=== PATIENT | female | born 2000 | race African-American/Black ===

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

== ENCOUNTER 2020-04-02 20:21 | Emergency (ER) | payer MEDICAID, SELFPAY | END 2020-04-02 20:53 | disposition home or self-care (01) | LOC: ERS 20:21 | DX: B35.4 Tinea corporis (principal); I10 Essential (primary) hypertension; D64.9 Anemia, unspecified | CPT/HCPCS: 99282 ==

== ENCOUNTER 2020-07-23 18:39 | Emergency (ER) | payer OTHER | END 2020-07-23 20:32 | disposition left against medical advice (07) | LOC: ERS 18:39 | DX: Z53.21 Procedure and treatment not carried out due to patient leaving prior to being seen by health care provider (principal) ==

== ENCOUNTER 2020-08-02 15:21 | Emergency (ER) | payer OTHER ==
[2020-08-02] MEDS ORDERED: Fluconazole 100 MG TAB PO SCH (16:30)
[2020-08-03 23:33] LABS: Chlamydia by PCR Not Detected (NotDetected); GC by PCR Not Detected (NotDetected)
== END 2020-08-02 16:30 | disposition home or self-care (01) ==
LOC: ERS 15:21
DX: B37.3 Candidiasis of vulva and vagina (principal); I10 Essential (primary) hypertension; D64.9 Anemia, unspecified; Z79.899 Other long term (current) drug therapy
CPT/HCPCS: 87480; 87491; 87510; 87591; 87660; 99283

== ENCOUNTER 2020-12-05 08:44 | Emergency (ER) | payer OTHER ==
--- NOTE | 2020-12-05 09:20 | RAD ---
XR Chest 1 View Portable History: Shortness of breath Comparison: Radiograph 2016 Findings: Patchy peripheral and perihilar airspace opacities. No pneumothorax. No effusion. No acute osseous abnormality. Impression: Commonly reported imaging findings of COVID-19 pneumonia.
[2020-12-05 09:45] LABS: BHCG - Serum Negative (NEGATIVE); Pregs Control Background? CLEAR/WHITE (CLR/WHITE); Pregs Control Bar Appear? YES (CONTROL BAR)
[2020-12-05 09:51] LABS: Hemoglobin 14.5 g/dL (12.0-16.0); Mean Corpuscular HGB CONC 33.7 g/dL (32.0-36.0); Mean Corpuscular Hemoglobin 27.6 pg (25.0-35.0); Mean Platelet Volume 10.7 fL (7.4-10.4); Platelet Count 117 thou/uL (130-400); RBC Distribution Width 12.8 % (11.5-14.5); Red Blood Cell (RBC) Count 5.26 mill/uL (4.00-5.20); White Blood Cell (WBC) Count 4.4 thou/uL (4.8-10.8)
[2020-12-05 09:52] LABS: #Lymphocytes 1.6 thou/uL (1.20-3.40); #Monocytes 0.2 thou/uL (0.11-0.59); #Neutrophils 2.5 thou/uL (1.40-6.50); %Basophils 1.1 % (0.0-1.0); %Eosinophils 0.9 % (0.0-10.0); %Lymphocytes 36.1 % (28.0-48.0); %Monocytes 3.6 % (0.0-4.0); %Neutrophils 58.2 % (31.0-61.0)
[2020-12-05 10:04] LABS: ALT (SGPT) 48 U/L (8-55); AST (SGOT) 39 U/L (5-34); Albumin 3.9 g/dL (3.5-5.0); Alkaline Phosphatase 159 U/L (40-100); Anion Gap 21 mmol/L (10-20); BUN (Urea Nitrogen) 9 mg/dL (7.0-18.7); Bilirubin, Total 0.3 mg/dL (0.2-1.2); Calc. Creatinine Clearance 0 mL/min (70-130); Calcium 8.8 mg/dL (7.8-10.44); Carbon Dioxide 20 mmol/L (22-29); Chloride 100 mmol/L (98-107); Globulin 3.8 g/dL (2.4-3.5); Glucose 447 mg/dL (70-105); Potassium 3.8 mmol/L (3.5-5.1); Protein, Total 7.7 g/dL (6.0-8.3); Sodium 137 mmol/L (136-145)
[2020-12-05 10:09] LABS: Large Platelets SLIGHT; MDiff Complete? YES; Platelet Morphology Comment Appears Decreased; Polychromasia SLIGHT = 2-3 cells (100X) (0-2/hpf)
--- NOTE | 2020-12-05 10:41 | CT ---
CT PULMONARY ANGIOGRAM WITH IV CONTRAST AND 3D POST PROCESSING: HISTORY: Fatigue, cough, body aches, fever, diarrhea. FINDINGS: No filling defects are seen in the pulmonary arterial vasculature to suggest pulmonary embolism. The thoracic aorta is well opacified without aneurysmal dissection. No pleural or pericardial effusions are identified. Multifocal patchy ground-glass opacities are seen in the lung [place] bilaterally. No acute osseous abnormalities are seen. No acute osseous abnormalities are seen. Upper abdominal t omograms demonstrate fatty infiltration of the liver. Prominent mediastinal lymph nodes are seen lior suring up to 9 mm. IMPRESSION: 1. No CT evidence of pulmonary embolism. 2. Findings are suspicious for COVID-19 pneumonia. 3. Fatty liver. POS: AH
[2020-12-05] MEDS ORDERED: Iopamidol-370 76% 500 ML 1 ML ONE (13:58)
[2020-12-07 09:16] LABS: SARS-CoV-2 PCR by NAA DETECTED (NotDetected)
--- NOTE | 2020-12-23 21:51 | EKG ---
Blood Pressure : / mmHG Vent. Rate : 100 BPM Atrial Rate : 100 BPM P-R Int : 156 ms QRS Dur : 088 ms QT Int : 344 ms P-R-T Axes : 036 065 -02 degrees QTc Int : 443 ms Normal sinus rhythm T wave abnormality, consider inferior ischemia Abnormal ECG Confirmed by MARY WILLIAM DO ([id number]), food editor ANALI MEDINA ([id number] on 12/23/2020 9:51:03 PM Referred By: Confirmed By:MARY WILLIAM DO
== END 2020-12-05 11:40 | disposition home or self-care (01) ==
LOC: ERS 08:44
DX: U07.1 COVID-19 (principal); J12.82 Pneumonia due to coronavirus disease 2019; R73.9 Hyperglycemia, unspecified; I10 Essential (primary) hypertension; D64.9 Anemia, unspecified; Z79.899 Other long term (current) drug therapy
CPT/HCPCS: 36416; 71045; 71275; 80053; 84484; 84703; 85025; 85379; 87635; 93005; Q9967; U0003; U0005

== ENCOUNTER 2020-12-09 08:41 | Inpatient (IN) | payer OTHER ==
[2020-12-09 09:26] LABS: Base Excess-Venous 0.1 mmol/L (-2.0 to 3.0); Bicarbonate (HCO3v) 25.3 mmol/L (22.0-28.0); CO2 Tension (PvCO2) 42.2 mmHg (40.0-50.0); Calcium, Ionized 1.11 mmol/L (1.15-1.33); Chloride 99 mmol/L (98-107); Hemoglobin - Calc 16.2 g/dL (12.0-16.0); Potassium 4.6 mmol/L (3.5-5.1); Sodium 135 mmol/L (138-145); T. Carbon Dioxide 26.6 mmol/L (22.0-28.0); vO2 Saturation-calc 83.3 % (60.0-85.0)
[2020-12-09 09:36] LABS: Hemoglobin 15.7 g/dL (12.0-16.0); Mean Corpuscular HGB CONC 34.7 g/dL (32.0-36.0); Mean Corpuscular Hemoglobin 28.2 pg (25.0-35.0); Mean Corpuscular Volume 81.3 fL (78.0-98.0); RBC Distribution Width 12.9 % (11.5-14.5); Red Blood Cell (RBC) Count 5.57 mill/uL (4.00-5.20); White Blood Cell (WBC) Count 4.7 thou/uL (4.8-10.8)
[2020-12-09] MEDS ORDERED: Acetaminophen 500 MG TAB ONE (09:39)
[2020-12-09] MEDS ORDERED: Ondansetron PF 4 MG/2 ML Vial ONE (09:39)
[2020-12-09 10:00] LABS: Lipase 43 U/L (8-78); Magnesium 1.9 mg/dL (1.7-2.2); Phosphorus 2.9 mg/dL (2.3-4.7)
[2020-12-09 10:00] LABS: ALT (SGPT) 47 U/L (8-55); AST (SGOT) 50 U/L (5-34); Albumin 4.2 g/dL (3.5-5.0); Alkaline Phosphatase 188 U/L (40-100); Anion Gap 22 mmol/L (10-20); BUN (Urea Nitrogen) 10 mg/dL (7.0-18.7); Bilirubin, Total 0.4 mg/dL (0.2-1.2); Calc. Creatinine Clearance 0 mL/min (70-130); Calcium 9.3 mg/dL (7.8-10.44); Carbon Dioxide 19 mmol/L (22-29); Chloride 96 mmol/L (98-107); Globulin 5.5 g/dL (2.4-3.5); Glucose 396 mg/dL (70-105); Potassium 4.6 mmol/L (3.5-5.1); Protein, Total 9.7 g/dL (6.0-8.3); Sodium 132 mmol/L (136-145)
[2020-12-09] MEDS ORDERED: HumaLOG 300 UNITS/3 ML VIAL ONE (10:53)
[2020-12-09 11:00] LABS: Lymphocytes 32 % (28-48); MDiff Complete? YES; Monocytes 8 % (0-4); Neutrophil 60 % (31-61); Platelet Count 141 thou/uL (130-400); Platelet Morphology Comment Appears Adequate
[2020-12-09] MEDS ORDERED: Insulin Glargine 10 UNITS in Pre-Filled Syringe 1 EACH SC SCH ×2 (11:15→21:00)
[2020-12-09] MEDS ORDERED: Dextrose 5% in Water 1,000 ML IV PRN (11:20)
[2020-12-09] MEDS ORDERED: Dextrose 50% Abboject 50 ML SYRINGE SLOW IVP PRN (11:20)
[2020-12-09] MEDS ORDERED: HumaLOG 300 UNITS/3 ML VIAL SC PRN ×2 (11:20→14:34)
--- NOTE | 2020-12-09 11:34 | PDOC.HHP ---
Hospitalist HPI - History of Present Illness N/V/D History of Present Illness: Ms. Hope is a 20-year-old female with past medical history of hypertension who presents to the emergency room for nausea vomiting diarrhea. Patient was recently diagnosed with Covid approximately 5 days ago and reports that 10 days ago she developed flulike symptoms. For the past few days however she has had worsening nausea vomiting and diarrhea and is now only able to tolerate small amounts of juice. Patient recently visited the emergency room a few days ago where she did have a CT PE performed which was negative for pulmonary embolism. At that time she was having some chest discomfort on deep inspiration. She also presents because she was concerned about her blood sugar. On her recent ER visit she had an elevated blood sugar in the 400s, and when she used her uncles glucometer to check it yesterday evening it was in the 300s. Patient reports a significant family history of diabetes stating that her mother passed at age 36 of diabetes, and that her uncle and grandmother both have type 2 diabetes. In emergency room initial vital signs 164/91, 106, 22, 98.8, 99% on room air. EKG showed sinus arrhythmia with nonspecific changes. Troponin 0 0.010. BUN/CR 10/0.85, sodium 132, potassium 4.6. Anion gap 22, bicarb 19. pH 7.39. H/H 15.7/43.3, WBC 4.7. Beta hydroxybutyrate +1.06, magnesium 1.9, phosphorus 2.9. Patient received 10 units of Lantus in the emergency room along with 1 L of normal saline, zofran, tylenol. Hospitalist ROS - Review of Systems Constitutional: reports: weakness, malaise. denies: fever, chills, sweats Eyes: denies: pain, vision change, conjunctivae inflammation, eyelid inflammat ion, redness, other ENT: denies: ear pain, ear discharge, nose pain, nose discharge, nose congestion, mouth pain, mouth swelling, throat pain, throat swelling, other Respiratory: denies: cough, dry, shortness of breath, hemoptysis, SOB with excertion, pleuritic pain, sputum, wheezing, other Cardiovascular: denies: chest pain, palpitations, orthopnea, paroxysmal noc. dyspnea, edema, light headedness, other Gastrointestinal: reports: nausea, vomiting, abdominal pain, diarrhea. denies: constipation, melena, hematochezia, other Genitourinary: denies: dysuria, frequency, incontinence, hematuria, retention, other Musculoskeletal: denies: neck pain, shoulder pain, arm pain, back pain, hand pain, leg pain, foot pain, other Skin: denies: rash, lesions, joana, bruising, other Neurological: denies: weakness, numbness, incoordination, change in speech, confusion, seizures, other - Medication Medications: Medications include Hydrochlorothiazide Hospitalist History - Past Medical History Other Medical History: Past medical history includes Hypertension Thrombocytopenia - Past Surgical History Other Surgical History: Past surgical history includes Cholecystectomy x2 - Family History Other Family History: Family history is significant for diabetes in patient's mother who passed at 36 from complications from diabetes, uncle with diabetes and grandmother with diabetes. No family history of cardiac disease - Social History Smoking Status: Never smoker Alcohol: reports: None Drugs: reports: none Living Situation: With Family Activity level: independent ambulation - Exam General Appearance: NAD, awake alert Eye: PERRL, anicteric sclera ENT: normocephalic atraumatic, no oropharyngeal lesions, moist mucosa Neck: supple, symmetric, no JVD, no thyromegaly, no lymphadenopathy, no carotid bruit Heart: RRR, no murmur, no gallops, no rubs, normal peripheral pulses Respiratory: CTAB, no wheezes, no rales, no ronchi, normal chest expansion, no tachypnea, normal percussion Gastrointestinal: soft, non-tender, non-distended, normal bowel sounds, no palpable masses, no hepatomegaly, no splenomegaly, no bruit Extremities: no cyanosis, no clubbing, no edema Skin: normal turgor, no lesions, no rashes Neurological: cranial nerve grossly intact, normal sensation to touch, no weakness, no focal deficits, no new deficit Musculoskeletal: normal tone, normal strength, no muscle wasting Psychiatric: normal affect, normal behavior, A&O x 3 Hospitalist Results - Labs Result Diagrams: 12/09/20 09:07 12/09/20 12:04 Lab results: WBC 4.7 thou/uL (4.8-10.8) L 12/09/20 09:07 Hgb 15.7 g/dL (12.0-16.0) 12/09/20 09:07 Hct 45.3 % (36.0-47.0) 12/09/20 09:07 MCV 81.3 fL (78.0-98.0) 12/09/20 09:07 Plt Count 141 thou/uL (130-400) 12/09/20 09:07 VBG pCO2 42.2 mmHg (40.0-50.0) 12/09/20 09:22 VBG pO2 48.7 mmHg (35.0-45.0) H 12/09/20 09:22 Sodium 132 mmol/L (136-145) L 12/09/20 09:07 Potassium 4.6 mmol/L (3.5-5.1) 12/09/20 09:07 Chloride 96 mmol/L (98-107) L 12/09/20 09:07 Carbon Dioxide 19 mmol/L (22-29) L 12/09/20 09:07 BUN 10 mg/dL (7.0-18.7) 12/09/20 09:07 Creatinine 0.85 mg/dL (0.6-1.1) 12/09/20 09:07 Glucose 396 mg/dL (70-105) H 12/09/20 09:07 Calcium 9.3 mg/dL (7.8-10.44) 12/09/20 09:07 Total Bilirubin 0.4 mg/dL (0.2-1.2) 12/09/20 09:07 AST 50 U/L (5-34) H 12/09/20 09:07 ALT 47 U/L (8-55) 12/09/20 09:07 Alkaline Phosphatase 188 U/L (40-100) H 12/09/20 09:07 Troponin I Less than 0.010 ng/mL (< 0.028) 12/09/20 09:08 Serum Total Protein 9.7 g/dL (6.0-8.3) H 12/09/20 09:07 Albumin 4.2 g/dL (3.5-5.0) 12/09/20 09:07 Lipase 43 U/L (8-78) 12/09/20 09:06 Hospitalist H&P A/P - Plan Plan: 20-year-old female past medical history of hypertension presents with nausea vomiting diarrhea diagnosed with Covid 5 days ago found to have new onset diabe ria and mild DKA. Diabetic ketoacidosis 20-year-old female with past medical history of hypertension presents for nausea vomiting diarrhea secondary to COVID-19 infection found to have new onset diabetes and mild DKA. Patient has a significant family history of diabetes adele loyd in her mother who passed at age 36 reportedly "from diabetes", unknown if type 1 or 2. Blood glucose on admission 396. Anion gap 22, bicarbonate 18, potassium 4.6. VBG showed pH of 7.38. Patient without altered mental status. Beta hydroxybutyrate positive 1.06. Patient received 10 units of Lantus in the emergency room as well as 1 L of normal saline. Patient also has nausea vomiting and abdominal pain c/w DKA. Will place on insulin sliding scale with every 2 hour glucose checks and continue to treat with scheduled insulin. Patient is insulin demairo and has not been on any treatment for diabetes in the past. Likely early-onset type 2 diabetes, but given patient's young age and family history of early diabetes, will check c-peptide and autoantibodies. Plan IV fluids SQ Insulin Every 2 hour glucose checks Close monitoring of potassium, bicarb, other electrolytes Hemoglobin A1c C-peptide, autoantibodies COVID-19 10-year-old female with recurrent COVID-19 infection. Tested +5 days ago, symptoms began 10 days ago. Patient with mild respiratory symptoms including a dry cough, but no shortness of breath. Not currently requiring oxygen. Largest symptom is nausea vomiting and diarrhea. Plan Covid precautions Continue to monitor respiratory status No indication for treatment at this time since patient is not requiring oxygen Nausea vomiting diarrhea Patient presents with 5 days of nausea vomiting diarrhea likely secondary to COVID-19 infection. Patient endorses mild abdominal discomfort, but no locali zed pain. Abdomen soft nontender. Nonperitoneal. Mild DKA may also be playing a role. LFTs AST/ALT 50/47, alk phos 188, T bili 0.97. Lipase 43. Patient symptoms improved with Zofran. Plan Likely due to Covid As needed Zofran Elevation in LFTs Patient with mildly elevated LFTs AST/ALT 50/47, alk phos 188, T bili 0.9. Lipase 43. Patient with nausea vomiting and diarrhea. Mild elevation likely secondary to COVID-19 infection. We will continue to trend. Plan Trend and monitor Hyponatremia Sodium 132 on admission. Likely psuedohyponatremia likely 2/2 hyperglycemia and component of hypoveolemic hyponatremia from GI loses. Patient received 1 L normal saline in emergency room and is receiving IV fluids for her very mild DKA as above. Will trend sodium and continue to monitor. Plan IV fluids Trend sodium DVT prophylaxis- SCDs FULL CODE Case discussed with attending physician, Dr. Castro.
[2020-12-09] MEDS ORDERED: Ondansetron PF 4 MG/2 ML Vial IVP PRN (11:51)
[2020-12-09 11:56] LABS: Hemoglobin A1c Greater than 14.0 % (4.0-6.0)
[2020-12-09 12:35] LABS: Anion Gap 18 mmol/L (10-20); BUN (Urea Nitrogen) 9 mg/dL (7.0-18.7); Calc. Creatinine Clearance 0 mL/min (70-130); Calcium 8.6 mg/dL (7.8-10.44); Carbon Dioxide 18 mmol/L (22-29); Chloride 102 mmol/L (98-107); Glucose 296 mg/dL (70-105); Potassium 4.3 mmol/L (3.5-5.1); Sodium 134 mmol/L (136-145)
[2020-12-09] MEDS: Sodium Chloride 0.9% 1,000 ML IV SCH ×2 (13:20→22:48)
[2020-12-09] MEDS: HumaLOG 300 UNITS/3 ML VIAL SC PRN ×3 (17:26→22:17)
[2020-12-09] MEDS: metFORMIN 500 MG TAB PO SCH (17:26)
[2020-12-09] MEDS: HYDROcodone/Acetaminophen 5/325 mg Tablet PO PRN (20:30)
[2020-12-10 01:16] VITALS: BMI 40.8
[2020-12-10] MEDS: HumaLOG 300 UNITS/3 ML VIAL SC PRN ×5 (04:55→21:35)
[2020-12-10 06:56] LABS: #Basophils 0.1 thou/uL (0.0-0.2); #Eosinphils 0.1 thou/uL (0.0-0.7); #Lymphocytes 1.9 thou/uL (1.20-3.40); #Monocytes 0.2 thou/uL (0.11-0.59); #Neutrophils 1.9 thou/uL (1.40-6.50); %Basophils 1.6 % (0.0-1.0); %Lymphocytes 45.8 % (28.0-48.0); %Monocytes 4.2 % (0.0-4.0); %Neutrophils 46.4 % (31.0-61.0); Hemoglobin 13.6 g/dL (12.0-16.0); Mean Corpuscular HGB CONC 33.1 g/dL (32.0-36.0); Mean Corpuscular Volume 81.5 fL (78.0-98.0); Mean Platelet Volume 10.3 fL (7.4-10.4); Platelet Count 161 thou/uL (130-400); RBC Distribution Width 12.8 % (11.5-14.5); Red Blood Cell (RBC) Count 5.04 mill/uL (4.00-5.20); White Blood Cell (WBC) Count 4.2 thou/uL (4.8-10.8)
[2020-12-10 07:24] LABS: ALT (SGPT) 45 U/L (8-55); AST (SGOT) 35 U/L (5-34); Albumin 3.4 g/dL (3.5-5.0); Alkaline Phosphatase 126 U/L (40-100); Anion Gap 12 mmol/L (10-20); BUN (Urea Nitrogen) 10 mg/dL (7.0-18.7); Bilirubin, Direct 0.1 mg/dL (0.1-0.3); Bilirubin, Total 0.2 mg/dL (0.2-1.2); Calc. Creatinine Clearance 208 mL/min (70-130); Calcium 8.9 mg/dL (7.8-10.44); Carbon Dioxide 24 mmol/L (22-29); Cardiac Risk 5.1 (Less than 4.5); Chloride 103 mmol/L (98-107); Cholesterol 173 mg/dl (< 200 Desired); Glucose 298 mg/dL (70-105); HDL Cholesterol 34 mg/dL (>60 Neg Risk); Protein, Total 6.5 g/dL (6.0-8.3); Sodium 135 mmol/L (136-145); Triglycerides 620 mg/dL (Less than 150)
[2020-12-10] MEDS: metFORMIN 500 MG TAB PO SCH (08:21)
[2020-12-10] MEDS: Insulin Glargine 10 UNITS in Pre-Filled Syringe 1 EACH SC SCH (08:21)
[2020-12-10] MEDS: Sodium Chloride 0.9% 1,000 ML IV SCH ×3 (08:21→16:39)
[2020-12-10] MEDS: HYDROcodone/Acetaminophen 5/325 mg Tablet PO PRN (09:26)
[2020-12-10] MEDS ORDERED: Loperamide HCl 2 MG CAP PO PRN (14:42)
--- NOTE | 2020-12-10 14:45 | PDOC.HOSPP ---
- Subjective Encounter Date: 12/10/20 Encounter Time: 14:40 Subjective: f/u for DKA/new-dx of DM/COVID-19 receiving ISS/IVF's and no O2 requirement. c/o abd pain/diarrhea. Tolerating po intake. - Objective Vital Signs & Weight: Vital Signs (12 hours) Temp Pulse Resp BP Pulse Ox 12/10/20 11:18 97.6 F 71 20 115/76 98 12/10/20 08:25 98 12/10/20 07:45 97.9 F 81 18 116/78 98 12/10/20 04:00 97.5 F L 54 L 18 96/64 98 Weight Weight 223 lb Result Diagrams: 12/10/20 06:40 12/10/20 06:40 Additional Labs: Accuchecks 12/10/20 12/10/20 12/10/20 11:11 06:31 04:46 POC Glucose 241 H 278 H 288 H 12/10/20 12/09/20 12/09/20 00:20 22:10 20:24 POC Glucose 190 H 272 H 329 H 12/09/20 16:45 POC Glucose 311 H Laboratory Tests 12/09/20 12/09/20 12/09/20 09:06 09:08 11:39 Hemoglobin A1c Greater than 14.0 H C-Peptide Magnesium 1.9 Triglycerides Cholesterol HDL Cholesterol Lipase 43 B-Hydroxybutyrate 1.06 H 12/09/20 12/10/20 11:39 06:40 Hemoglobin A1c C-Peptide 2.4 Magnesium Triglycerides 620 H Cholesterol 173 HDL Cholesterol 34 Lipase B-Hydroxybutyrate Hospitalist ROS - Medication Medications: Active Medications Generic Name Dose Route Start Last Admin Trade Name Freq PRN Reason Stop Dose Admin Hydrocodone Bitart/Acetaminophen 2 tab 12/09/20 19:59 12/10/20 09:26 Hydrocodone/Acetaminophen 5/325 Mg Tablet PO 2 tab Q4H PRN Administration Moderate to Severe Pain (6-10) Sodium Chloride 1,000 mls @ 100 mls/hr 12/09/20 11:30 12/10/20 08:21 Normal Saline 0.9% IV 1,000 mls .Q10H XIN Administration Insulin Glargine 10 units/ 0.1 mls @ 0 mls/hr 12/10/20 09:00 01/24/21 08:21 Miscellaneous Medication SC 0.1 mls QAM XIN Administration Insulin Human Lispro 0 units 12/09/20 11:20 12/10/20 04:55 Humalog 300 Units/3 Ml Vial SC 3 unit .BEDTIME SLIDING SC PRN Administration Bedtime Correctional Scale Insulin Human Lispro 0 units 12/09/20 14:34 12/10/20 11:26 Humalog 300 Units/3 Ml Vial SC 4 unit .MODERATE SLIDING SC PRN Administration Moderate Correctional Scale Metformin HCl 500 mg 12/09/20 17:00 12/10/20 08:21 Metformin 500 Mg Tab PO 500 mg BID-WM XIN Administration - Exam General Appearance: NAD, awake alert Eye: PERRL, anicteric sclera ENT: normocephalic atraumatic, no oropharyngeal lesions Neck: supple, symmetric, no JVD, no thyromegaly, no lymphadenopathy Heart: RRR, no murmur, no gallops, no rubs, normal peripheral pulses Heart - other findings: S1, S2 Respiratory: CTAB, no wheezes, no rales, no ronchi, normal chest expansion Gastrointestinal: soft, non-tender, non-distended, normal bowel sounds, no palpable masses Extremities: no cyanosis, no clubbing, no edema Skin: normal turgor, no lesions Neurological: cranial nerve grossly intact, no new deficit Musculoskeletal: normal tone, normal strength, no muscle wasting Psychiatric: normal affect, A&O x 3 Hosp A/P (1) DKA (diabetic ketoacidosis) Code(s): E11.10 - TYPE 2 DIABETES MELLITUS WITH KETOACIDOSIS WITHOUT COMA Status: Acute Qualifiers: Diabetes mellitus type: type 2 Plan: Continue IVF's, increase Lantus 10u BID, ISS, DM teaching, ADA, serial accuchecks (2) COVID-19 Code(s): U07.1 - COVID-19 Status: Acute Plan: Continue supportive mgmt, isolation protocol, add Vit C/Zinc/D3 (3) Abdominal pain Code(s): R10.9 - UNSPECIFIED ABDOMINAL PAIN Status: Acute Qualifiers: Abdominal location: generalized Qualified Code(s): R10.84 - Generalized abdominal pain Plan: Likely combination of COVID-19/DKA, continue supportive mgmt (4) Nausea & vomiting Code(s): R11.2 - NAUSEA WITH VOMITING, UNSPECIFIED Status: Acute Plan: Likely multifactorial, continue Zofran/IVF's (5) New onset type 2 diabetes mellitus Code(s): E11.9 - TYPE 2 DIABETES MELLITUS WITHOUT COMPLICATIONS Status: Acute Plan: A1C = 14, continue Lantus/ISS/hold Metformin due to ongoing abd pain/diarrhea, DM teaching, consider dietitian consult - Plan psychotherapist social worker, out of bed/ambulate, DVT proph w/SCDs Continue supportive mgmt Consult Dietitian for DM education Increase Lantus 10u BID ISS/ADA Start Vit C/Zinc/D3 Hold Metformin due to abd pain/diarrhea AM lab: BMP
[2020-12-10] MEDS ORDERED: Ascorbic Acid 500 mg Chewable Tablet PO SCH (15:15)
[2020-12-10] MEDS ORDERED: Zinc Sulfate 220 MG CAP PO SCH (15:15)
[2020-12-10] MEDS: Ondansetron ODT 4 MG TAB PO PRN (16:48)
[2020-12-10] MEDS ORDERED: Insulin Glargine 10 UNITS in Pre-Filled Syringe 1 EACH SC SCH (21:00)
[2020-12-11] MEDS: HYDROcodone/Acetaminophen 5/325 mg Tablet PO PRN ×3 (03:37→22:02)
[2020-12-11] MEDS: Sodium Chloride 0.9% 1,000 ML IV SCH ×3 (03:38→23:28)
[2020-12-11] MEDS: HumaLOG 300 UNITS/3 ML VIAL SC PRN ×3 (05:39→17:43)
[2020-12-11 07:20] LABS: Hemoglobin 13.2 g/dL (12.0-16.0); Mean Corpuscular HGB CONC 33.2 g/dL (32.0-36.0); Mean Corpuscular Hemoglobin 27.6 pg (25.0-35.0); Mean Corpuscular Volume 83.1 fL (78.0-98.0); Mean Platelet Volume 10.6 fL (7.4-10.4); Platelet Count 157 thou/uL (130-400); RBC Distribution Width 13.1 % (11.5-14.5); Red Blood Cell (RBC) Count 4.78 mill/uL (4.00-5.20); White Blood Cell (WBC) Count 3.8 thou/uL (4.8-10.8)
[2020-12-11 07:30] LABS: ALT (SGPT) 49 U/L (8-55); AST (SGOT) 39 U/L (5-34); Albumin 3.4 g/dL (3.5-5.0); Alkaline Phosphatase 109 U/L (40-100); Anion Gap 13 mmol/L (10-20); BUN (Urea Nitrogen) 8 mg/dL (7.0-18.7); Bilirubin, Total 0.3 mg/dL (0.2-1.2); Calc. Creatinine Clearance 199 mL/min (70-130); Calcium 8.9 mg/dL (7.8-10.44); Carbon Dioxide 27 mmol/L (22-29); Chloride 104 mmol/L (98-107); Globulin 2.8 g/dL (2.4-3.5); Glucose 224 mg/dL (70-105); Potassium 4.1 mmol/L (3.5-5.1); Protein, Total 6.2 g/dL (6.0-8.3); Sodium 140 mmol/L (136-145)
[2020-12-11] MEDS: Cholecalciferol 1,000 UNITS (25 MCG) TAB PO SCH (08:46)
[2020-12-11] MEDS: Insulin Glargine 10 UNITS in Pre-Filled Syringe 1 EACH SC SCH (08:46)
[2020-12-11] MEDS: Zinc Sulfate 220 MG CAP PO SCH (08:46)
[2020-12-11] MEDS: Ascorbic Acid 500 mg Chewable Tablet PO SCH (08:46)
[2020-12-11] MEDS: Ondansetron ODT 4 MG TAB PO PRN ×2 (08:48→22:04)
[2020-12-11 10:25] LABS: Eosinophils 3 % (0-10); Lymphocytes 47 % (28-48); MDiff Complete? YES; Monocytes 7 % (0-4); Neutrophil 43 % (31-61); RBC Morphology Normal
--- NOTE | 2020-12-11 10:28 | PDOC.HOSPP ---
- Subjective Encounter Date: 12/11/20 Encounter Time: 10:25 Subjective: f/u for DKA/COVID/Abd pain/Diarrhea. Overall feeling better today. Glucose trend remains elevated but overall improved. - Objective Vital Signs & Weight: Vital Signs (12 hours) Temp Pulse Resp BP Pulse Ox 12/11/20 07:40 97.8 F 67 18 98/65 98 12/11/20 03:54 98.1 F 69 14 117/88 99 Weight Weight 223 lb I&O: 12/10/20 12/11/20 12/12/20 06:59 06:59 06:59 Intake Total 1245 120 Balance 1245 120 Result Diagrams: 12/11/20 06:25 12/11/20 06:25 Additional Labs: Accuchecks 12/11/20 12/10/20 12/10/20 05:04 20:33 16:24 POC Glucose 188 H 237 H 289 H 12/10/20 11:11 POC Glucose 241 H Laboratory Tests 12/09/20 12/09/20 12/09/20 09:06 09:08 11:39 Hemoglobin A1c Greater than 14.0 H C-Peptide Magnesium 1.9 Triglycerides Cholesterol HDL Cholesterol Lipase 43 B-Hydroxybutyrate 1.06 H 12/09/20 12/10/20 12/11/20 11:39 06:40 06:25 Hemoglobin A1c C-Peptide 2.4 Magnesium Triglycerides 620 H Cholesterol 173 HDL Cholesterol 34 Lipase B-Hydroxybutyrate 0.30 H Hospitalist ROS - Medication Medications: Active Medications Generic Name Dose Route Start Last Admin Trade Name Freq PRN Reason Stop Dose Admin Hydrocodone Bitart/Acetaminophen 1 tab 12/09/20 19:59 12/11/20 03:37 Hydrocodone/Acetaminophen 5/325 Mg Tablet PO 1 tab Q4H PRN Administration Mild-Moderate Pain (1-5) Hydrocodone Bitart/Acetaminophen 2 tab 12/09/20 19:59 12/10/20 09:26 Hydrocodone/Acetaminophen 5/325 Mg Tablet PO 2 tab Q4H PRN Administration Moderate to Severe Pain (6-10) Ascorbic Acid 1,000 mg 12/11/20 09:00 12/11/20 08:46 Ascorbic Acid 500 Mg Chewable Tablet PO 1,000 mg DAILY XIN Administration Cholecalciferol 1,000 units 12/11/20 09:00 12/11/20 08:46 Cholecalciferol 1,000 Units (25 Mcg) Tab PO 1,000 units DAILY XIN Administration Sodium Chloride 1,000 mls @ 100 mls/hr 12/09/20 11:30 12/11/20 03:38 Normal Saline 0.9% IV 1,000 mls .Q10H XIN Administration Insulin Glargine 10 units/ 0.1 mls @ 0 mls/hr 12/10/20 09:00 12/11/20 08:46 Miscellaneous Medication SC 0.1 mls QAM XIN Administration Insulin Glargine 10 units/ 0.1 mls @ 0 mls/hr 12/10/20 21:00 12/10/20 21:35 Miscellaneous Medication SC 0.1 mls HS XIN Administration Insulin Human Lispro 0 units 12/09/20 11:20 12/10/20 21:35 Humalog 300 Units/3 Ml Vial SC 2 unit .BEDTIME SLIDING SC PRN Administration Bedtime Correctional Scale Insulin Human Lispro 0 units 12/09/20 14:34 12/11/20 05:39 Humalog 300 Units/3 Ml Vial SC 2 unit .MODERATE SLIDING SC PRN Administration Moderate Correctional Scale Loperamide HCl 2 mg 12/10/20 14:42 12/10/20 15:23 Loperamide Hcl 2 Mg Cap PO 2 mg PRN PRN Administration Diarrhea/Loose Stools Metformin HCl 500 mg 12/09/20 17:00 12/10/20 08:21 Metformin 500 Mg Tab PO 500 mg BID-WM XIN Administration Ondansetron HCl 4 mg 12/09/20 11:51 12/11/20 08:48 Ondansetron Odt 4 Mg Tab PO 4 mg Q6H PRN Administration Nausea/Vomiting Sodium Chloride 10 ml 12/09/20 20:15 12/11/20 08:47 Flush - Normal Saline 10 Ml Syringe IVF 10 ml PRN PRN Administration Saline Flush Zinc Sulfate 220 mg 12/11/20 09:00 12/11/20 08:46 Zinc Sulfate 220 Mg Cap PO 220 mg DAILY XIN Administration - Exam General Appearance: NAD, awake alert Eye: PERRL, anicteric sclera ENT: normocephalic atraumatic, no oropharyngeal lesions Neck: supple, symmetric, no JVD, no thyromegaly, no lymphadenopathy Heart: RRR, no murmur, no gallops, no rubs, normal peripheral pulses Heart - other findings: S1, S2 Respiratory: CTAB, no wheezes, no rales, no ronchi, normal chest expansion Gastrointestinal: soft, non-tender, non-distended, normal bowel sounds, no palpable masses Extremities: no cyanosis, no clubbing, no edema Skin: normal turgor, no lesions Neurological: cranial nerve grossly intact, no new deficit Musculoskeletal: normal tone, normal strength, no muscle wasting Psychiatric: normal affect, A&O x 3 Hosp A/P (1) DKA (diabetic ketoacidosis) Code(s): E11.10 - TYPE 2 DIABETES MELLITUS WITH KETOACIDOSIS WITHOUT COMA Status: Acute Qualifiers: Diabetes mellitus type: type 2 Plan: Resolving, saline lock IVF's, increase Lantus 15u BID, ISS, DM teaching (2) COVID-19 Code(s): U07.1 - COVID-19 Status: Acute Plan: Continue supportive mgmt, no respiratory compromise (3) Abdominal pain Code(s): R10.9 - UNSPECIFIED ABDOMINAL PAIN Status: Acute Qualifiers: Abdominal location: generalized Qualified Code(s): R10.84 - Generalized abdominal pain Plan: Improved, likely due to COVID-19 and DKA (4) Nausea & vomiting Code(s): R11.2 - NAUSEA WITH VOMITING, UNSPECIFIED Status: Acute Plan: Resolved (5) New onset type 2 diabetes mellitus Code(s): E11.9 - TYPE 2 DIABETES MELLITUS WITHOUT COMPLICATIONS Status: Acute Plan: Continue Lantus 15u BID, ISS, DM teaching, home glucometer, ADA - Plan social work administrator, out of bed/ambulate, DVT proph w/SCDs Continue supportive mgmt Consult Dietitian for DM education Increase Lantus 15u BID ISS/ADA Start Vit C/Zinc/D3 Hold Metformin due to abd pain/diarrhea OOB/ambulate Likely home in am
[2020-12-11] MEDS ORDERED: Insulin Glargine 15 UNITS in Pre-Filled Syringe 1 EACH SC SCH ×2 (10:52→11:00)
[2020-12-11] MEDS ORDERED: Insulin Glargine 5 UNITS in Pre-Filled Syringe 1 EACH SC SCH (12:30)
[2020-12-12] MEDS: HumaLOG 300 UNITS/3 ML VIAL SC PRN (05:56)
[2020-12-12 06:39] LABS: Hemoglobin 13.2 g/dL (12.0-16.0); Lymphocytes 46 % (28-48); MDiff Complete? YES; Mean Corpuscular HGB CONC 34.2 g/dL (32.0-36.0); Mean Corpuscular Hemoglobin 28.2 pg (25.0-35.0); Mean Corpuscular Volume 82.5 fL (78.0-98.0); Mean Platelet Volume 10.3 fL (7.4-10.4); Monocytes 6 % (0-4); Neutrophil 48 % (31-61); Platelet Count 153 thou/uL (130-400); Platelet Morphology Comment Appears Adequate; RBC Distribution Width 13.1 % (11.5-14.5); RBC Morphology Normal; Red Blood Cell (RBC) Count 4.68 mill/uL (4.00-5.20); White Blood Cell (WBC) Count 4.2 thou/uL (4.8-10.8)
[2020-12-12 06:44] LABS: Anion Gap 12 mmol/L (10-20); BUN (Urea Nitrogen) 8 mg/dL (7.0-18.7); Calc. Creatinine Clearance 217 mL/min (70-130); Calcium 8.7 mg/dL (7.8-10.44); Carbon Dioxide 26 mmol/L (22-29); Chloride 104 mmol/L (98-107); Glucose 228 mg/dL (70-105); Sodium 138 mmol/L (136-145)
[2020-12-12] MEDS: Ascorbic Acid 500 mg Chewable Tablet PO SCH (08:41)
[2020-12-12] MEDS: Cholecalciferol 1,000 UNITS (25 MCG) TAB PO SCH (08:41)
[2020-12-12] MEDS: Zinc Sulfate 220 MG CAP PO SCH (08:41)
[2020-12-12] MEDS ORDERED: Insulin Glargine 15 UNITS in Pre-Filled Syringe 1 EACH SC SCH (09:00)
[2020-12-12] MEDS: Sodium Chloride 0.9% 1,000 ML IV SCH (09:26)
[2020-12-12 11:27] VITALS: BP 106/74; TEMP 97.8
--- NOTE | 2020-12-12 11:59 | DIS ---
DATE OF ADMISSION: 12/09/2020 DATE OF DISCHARGE: 12/12/2020 DISCHARGE DIAGNOSES: 1. Diabetic ketoacidosis, mild, resolving. 2. Diabetes mellitus type 2, new onset. 3. COVID-19 viral infection. 4. Abdominal pain secondarily to COVID-19, improved. 5. Nausea and vomiting, resolved. 6. Hyperlipidemia. CONSULTATIONS: None. PERTINENT LABORATORY AND X-RAY FINDINGS: Hemoglobin A1c greater than 14. C-peptide 2.4, magnesium level 1.9, AST 35, ALT 45, alkaline phosphatase 126. Total cholesterol 173, triglyceride 620, HDL 34, lipase 43. CBC showed a white blood cell count ranging between 3.8 to 4.7. Beta-hydroxybutyrate level ranged between 0.30-1.06. Portable chest x-ray dated 12/05/2020 showed mild patchy peripheral infiltrates. CT angiogram of the chest dated 12/05/2020 showed no evidence for pulmonary embolus. Multifocal patchy ground-glass opacities noted. HOSPITAL COURSE: The patient was initially admitted to the medical floor after presenting with nausea, vomiting, and diarrhea. The patient was initially placed on IV fluids and noted with hyperglycemia with initial glucose greater than 400. Beta-hydroxybutyrate level was also noted elevated and the patient was placed on mild DKA protocol. The patient received subcutaneous Lantus in the emergency room in addition to IV Zofran and Tylenol. The patient was placed on isolation protocol due to COVID-19 positivity with recent serology on 12/05/2020 showing SARS-CoV-2 RNA positive. The patient did not exhibit oxygen needs or primary respiratory compromise and was treated supportively for abdominal discomfort and diarrhea. The patient was titrated on Lantus to 15 units subcutaneously b.i.d. in addition to metformin 500 mg b.i.d. The patient was given extensive education from Dietary Services and nursing personnel regarding the management of diabetes mellitus with recommendations for outpatient followup. Overall, the patient did remain clinically stable during the hospital course, tolerating regular oral intake with stable vital signs. I have examined the patient at the time of discharge and discussed followup instructions. The patient verbalizes understanding and agreement and ready for discharge on 12/12/2020. DISCHARGE MEDICATIONS: 1. Lantus 15 units subcutaneously b.i.d. 2. Metformin 500 mg p.o. b.i.d. 3. Albuterol sulfate one puff inhaled q.6 hours p.r.n. 4. Hydrochlorothiazide 12.5 mg p.o. b.i.d. 5. Ferrous sulfate 325 mg p.o. b.i.d. 6. Vitamin C 1000 mg p.o. daily. FOLLOWUP: The patient may follow up with [place], [place] within 7 to 10 days of discharge. CONDITION ON DISCHARGE: Stable. ACTIVITY: Ad-kenna. DIET: ADA. CODE STATUS: Full. DISPOSITION: To home on 12/12/2020. TIME SPENT: Total time preparing and coordinating discharge, 37 minutes. Job ID: [id number]
== END 2020-12-12 13:04 | disposition home or self-care (01) | DRG 637 ==
LOC: ERS 08:41 → T4-B 12:28 → OBSVTOIN 17:52
PROVIDERS: ADMIT Internal Medicine; ATTEND Family Medicine
PROC: 8E0ZXY6 Isolation (ICD-10-PCS; principal; 2020-12-09)
DX: E11.10 Type 2 diabetes mellitus with ketoacidosis without coma (principal); U07.1 COVID-19; E87.1 Hypo-osmolality and hyponatremia; D69.6 Thrombocytopenia, unspecified; R79.89 Other specified abnormal findings of blood chemistry; E78.5 Hyperlipidemia, unspecified; D64.9 Anemia, unspecified; I10 Essential (primary) hypertension; R11.2 Nausea with vomiting, unspecified; Z90.49 Acquired absence of other specified parts of digestive tract; Z98.890 Other specified postprocedural states; Z91.018 Allergy to other foods; Z83.3 Family history of diabetes mellitus
CPT/HCPCS: 36415; 36416; 80048; 80053; 80061; 80076; 82010; 82330; 82803; 83036; 83519; 83690; 83735; 84100; 84484; 84681; 85025; 86341; 93005; 96374; G0378; J1815; J2405; Q0162

== ENCOUNTER 2021-02-02 06:09 | Emergency (ER) | payer OTHER ==
[2021-02-02] MEDS ORDERED: Morphine 4 MG/ML VIAL ONE (06:33)
[2021-02-02] MEDS ORDERED: Ondansetron PF 4 MG/2 ML Vial ONE (06:33)
[2021-02-02 06:42] LABS: #Basophils 0.1 thou/uL (0.0-0.2); #Eosinphils 0.1 thou/uL (0.0-0.7); #Lymphocytes 2.1 thou/uL (1.20-3.40); #Monocytes 0.3 thou/uL (0.11-0.59); #Neutrophils 5.5 thou/uL (1.40-6.50); %Eosinophils 1.3 % (0.0-10.0); %Lymphocytes 26.2 % (28.0-48.0); %Monocytes 3.7 % (0.0-4.0); %Neutrophils 67.8 % (31.0-61.0); Hemoglobin 12.8 g/dL (12.0-16.0); Mean Corpuscular Hemoglobin 27.8 pg (25.0-35.0); Mean Corpuscular Volume 84.3 fL (78.0-98.0); Mean Platelet Volume 9.4 fL (7.4-10.4); Platelet Count 204 thou/uL (130-400); RBC Distribution Width 13.2 % (11.5-14.5); Red Blood Cell (RBC) Count 4.61 mill/uL (4.00-5.20); White Blood Cell (WBC) Count 8.2 thou/uL (4.8-10.8)
[2021-02-02 06:55] LABS: BHCG - Serum Negative (NEGATIVE); Pregs Control Background? CLEAR/WHITE (CLR/WHITE); Pregs Control Bar Appear? YES (CONTROL BAR)
[2021-02-02 06:59] LABS: ALT (SGPT) 22 U/L (8-55); AST (SGOT) 15 U/L (5-34); Albumin 4.3 g/dL (3.5-5.0); Alkaline Phosphatase 127 U/L (40-100); Anion Gap 14 mmol/L (10-20); BUN (Urea Nitrogen) 12 mg/dL (7.0-18.7); Bilirubin, Total 0.3 mg/dL (0.2-1.2); Calc. Creatinine Clearance 0 mL/min (70-130); Calcium 9.8 mg/dL (7.8-10.44); Carbon Dioxide 25 mmol/L (22-29); Chloride 103 mmol/L (98-107); Globulin 3.5 g/dL (2.4-3.5); Glucose 130 mg/dL (70-105); Lipase 26 U/L (8-78); Potassium 3.9 mmol/L (3.5-5.1); Protein, Total 7.8 g/dL (6.0-8.3); Sodium 138 mmol/L (136-145)
[2021-02-02 07:48] LABS: Bilirubin Negative (Negative); Blood, Urine Negative (Negative); Clarity Clear (Clear); Glucose, Urine (Dipstick) Normal (Negative); Ketone, Urine Negative (Negative); Leukocyte Negative Leu/uL (Negative); Nitrite Negative (Negative); Protein, Urine (Dipstick) 10 mg/dL (Neg-Trace); Specific Gravity, Urine 1.044 (1.002-1.036); Urobilinogen Normal mg/dL (Less than 2); pH, Urine 5.5 (5.0-9.0)
[2021-02-02] MEDS ORDERED: Cyclobenzaprine 10 MG TAB ONE (08:14)
[2021-02-02] MEDS ORDERED: Ketorolac Tromethamine 30 MG/ML VIAL ONE (08:14)
[2021-02-02] MEDS ORDERED: Iopamidol-370 76% 500 ML 1 ML ONE (12:04)
== END 2021-02-02 08:49 | disposition home or self-care (01) ==
LOC: ERS 06:09
DX: R07.9 Chest pain, unspecified (principal); E11.9 Type 2 diabetes mellitus without complications; I10 Essential (primary) hypertension; D64.9 Anemia, unspecified; Z79.4 Long term (current) use of insulin; Z79.899 Other long term (current) drug therapy
CPT/HCPCS: 36415; 36416; 71045; 71275; 80053; 81003; 83690; 83735; 84484; 84703; 85025; 93005; 94760; 96374; 96375; J1885; J2270; J2405; Q9967

== ENCOUNTER 2021-02-27 15:07 | Emergency (ER) | payer OTHER | END 2021-02-27 15:46 | disposition left against medical advice (07) | LOC: ERS 15:07 | DX: Z53.21 Procedure and treatment not carried out due to patient leaving prior to being seen by health care provider (principal) ==

== ENCOUNTER 2021-04-03 22:46 | Emergency (ER) | payer OTHER ==
[2021-04-03 23:09] LABS: Bilirubin Negative (Negative); Blood, Urine Negative (Negative); Clarity Clear (Clear); Glucose, Urine (Dipstick) Normal (Negative); Ketone, Urine Negative (Negative); Leukocyte Negative Leu/uL (Negative); Nitrite Negative (Negative); Protein, Urine (Dipstick) 10 mg/dL (Neg-Trace); pH, Urine 7.5 (5.0-9.0)
[2021-04-03 23:10] LABS: Pregnancy Test - Urine (BHCG) Negative (Negative); Pregu Control Background? CLEAR/WHITE (CLR/WHITE); Pregu Control Bar Appear? YES (CONTROL BAR)
[2021-04-03] MEDS ORDERED: Ondansetron PF 4 MG/2 ML Vial ONE (23:17)
[2021-04-03] MEDS ORDERED: Acetaminophen 500 MG TAB ONE (23:17)
[2021-04-03 23:50] LABS: #Basophils 0.1 thou/uL (0.0-0.2); #Eosinphils 0.2 thou/uL (0.0-0.7); #Lymphocytes 1.4 thou/uL (1.20-3.40); #Monocytes 0.4 thou/uL (0.11-0.59); #Neutrophils 7.3 thou/uL (1.40-6.50); %Basophils 0.6 % (0.0-1.0); %Lymphocytes 14.9 % (28.0-48.0); %Monocytes 4.2 % (0.0-4.0); %Neutrophils 78.3 % (31.0-61.0); Hemoglobin 13.8 g/dL (12.0-16.0); Mean Corpuscular HGB CONC 32.8 g/dL (32.0-36.0); Mean Corpuscular Hemoglobin 26.9 pg (25.0-35.0); Mean Platelet Volume 9.9 fL (7.4-10.4); Platelet Count 193 thou/uL (130-400); RBC Distribution Width 13.2 % (11.5-14.5); Red Blood Cell (RBC) Count 5.12 mill/uL (4.00-5.20); White Blood Cell (WBC) Count 9.4 thou/uL (4.8-10.8)
[2021-04-04 00:12] LABS: ALT (SGPT) 22 U/L (8-55); AST (SGOT) 12 U/L (5-34); Albumin 4.5 g/dL (3.5-5.0); Alkaline Phosphatase 115 U/L (40-100); Anion Gap 16 mmol/L (10-20); BUN (Urea Nitrogen) 13 mg/dL (7.0-18.7); Bilirubin, Total 0.3 mg/dL (0.2-1.2); Calc. Creatinine Clearance 0 mL/min (70-130); Calcium 9.9 mg/dL (7.8-10.44); Carbon Dioxide 22 mmol/L (22-29); Chloride 101 mmol/L (98-107); Globulin 3.9 g/dL (2.4-3.5); Glucose 147 mg/dL (70-105); Lipase 24 U/L (8-78); Potassium 3.9 mmol/L (3.5-5.1); Protein, Total 8.4 g/dL (6.0-8.3); Sodium 135 mmol/L (136-145)
== END 2021-04-04 01:09 | disposition home or self-care (01) ==
LOC: ERS 22:46
DX: J34.89 Other specified disorders of nose and nasal sinuses (principal); R11.2 Nausea with vomiting, unspecified; R09.81 Nasal congestion; E11.9 Type 2 diabetes mellitus without complications; I10 Essential (primary) hypertension; J45.909 Unspecified asthma, uncomplicated; Z79.84 Long term (current) use of oral hypoglycemic drugs
CPT/HCPCS: 36416; 80053; 81003; 81025; 83690; 85025; 96374; J2405

== ENCOUNTER 2021-12-24 23:15 | Emergency (ER) | payer OTHER ==
[2021-12-25 11:48] LABS: SARS-CoV-2 PCR by NAA Not Detected (NotDetected)
== END 2021-12-25 00:57 | disposition short-term general hospital (02) ==
LOC: ERS 23:15
DX: O99.891 Other specified diseases and conditions complicating pregnancy (principal); R10.9 Unspecified abdominal pain; O21.9 Vomiting of pregnancy, unspecified; O99.513 Diseases of the respiratory system complicating pregnancy, third trimester; J06.9 Acute upper respiratory infection, unspecified; E11.9 Type 2 diabetes mellitus without complications; I10 Essential (primary) hypertension; J45.909 Unspecified asthma, uncomplicated; Z20.822 Contact with and (suspected) exposure to COVID-19; Z3A.31 31 weeks gestation of pregnancy; Z79.4 Long term (current) use of insulin; Z79.899 Other long term (current) drug therapy
CPT/HCPCS: 36416; 99284; U0003; U0005

== ENCOUNTER 2023-06-14 08:11 | Emergency (ER) | payer BC, MEDICAID ==
[2023-06-14] MEDS ORDERED: Morphine 4 MG/ML VIAL ONE (08:40)
[2023-06-14 08:41] LABS: #Eosinphils 0.1 thou/uL (0.0-0.7); #Monocytes 0.3 thou/uL (0.11-0.59); %Basophils 0.5 % (0.0-1.0); %Lymphocytes 31.3 % (21.0-51.0); %Neutrophils 62.9 % (42.0-75.0); Hemoglobin 12.5 g/dL (12.0-16.0); Mean Corpuscular Hemoglobin 25.1 pg (27.0-31.0); Mean Corpuscular Volume 78.5 fl (78.0-98.0); Mean Platelet Volume 12.4 fL (7.4-10.4); Platelet Count 182 10x3/uL (130-400); RBC Distribution Width 15.4 % (11.5-14.5); Red Blood Cell (RBC) Count 4.98 mill/uL (4.20-5.40); White Blood Cell (WBC) Count 6.3 10x3/uL (4.8-10.8)
[2023-06-14] MEDS ORDERED: Ondansetron PF 4 MG/2 ML Vial ONE (08:45)
[2023-06-14] MEDS ORDERED: Pantoprazole 40 MG VIAL ONE (08:45)
[2023-06-14 09:22] LABS: Albumin 4.4 g/dL (3.5-5.0)
[2023-06-14 09:23] LABS: Chloride 101 mmol/L (98-107); Sodium 135 mmol/L (136-145)
[2023-06-14 09:24] LABS: Calcium 9.9 mg/dL (7.8-10.44)
[2023-06-14 09:25] LABS: Globulin 3.2 g/dL (2.4-3.5); Glucose 279 mg/dL (70-105); Protein, Total 7.6 g/dL (6.0-8.3)
[2023-06-14 09:26] LABS: Anion Gap 13 mmol/L (10-20); BHCG - Serum Negative (NEGATIVE); Bilirubin, Total 0.3 mg/dL (0.2-1.2); Carbon Dioxide 25 mmol/L (22-29); Pregs Control Background? CLEAR/WHITE (CLR/WHITE); Pregs Control Bar Appear? YES (CONTROL BAR)
[2023-06-14 09:27] LABS: Alkaline Phosphatase 135 U/L (40-110)
[2023-06-14 09:28] LABS: Calc. Creatinine Clearance 0 mL/min (70-130); Estimated GFR 125
[2023-06-14 09:29] LABS: BUN (Urea Nitrogen) 11 mg/dL (7.0-18.7)
[2023-06-14 09:30] LABS: ALT (SGPT) 16 U/L (8-55); AST (SGOT) 14 U/L (5-34)
[2023-06-14 09:31] LABS: Lipase 27 U/L (8-78)
[2023-06-14 10:26] LABS: Bacteria/HPF None Seen HPF (None Seen); Bilirubin Negative (Negative); Blood, Urine Negative (Negative); CAUTI Indications for Culture Pelvic or flank pain; Clarity Clear (Clear); Glucose, Urine (Dipstick) Greater than 1000 mg/dL (Negative); Ketone, Urine Negative (Negative); Leukocyte 500 Leu/uL (Negative); Nitrite Negative (Negative); Protein, Urine (Dipstick) 10 mg/dL (Neg-Trace); RBC/HPF 0-3 HPF (0-3); Specific Gravity, Urine 1.031 (1.002-1.036); Urobilinogen Normal mg/dL (Less than 2); pH, Urine 6.5 (5.0-9.0)
[2023-06-14 10:29] LABS: Urine Culture Reflex No No
[2023-06-14] MEDS ORDERED: Iopamidol-370 76% 500 ML MDV (1 ML CHARGE) ONE (11:47)
== END 2023-06-14 13:00 | disposition home or self-care (01) ==
LOC: ERS 08:11
DX: R10.13 Epigastric pain (principal); E11.9 Type 2 diabetes mellitus without complications; I10 Essential (primary) hypertension; Z79.4 Long term (current) use of insulin; Z79.899 Other long term (current) drug therapy
CPT/HCPCS: 36415; 74177; 80053; 81001; 83690; 84703; 85025; 96361; 96374; 96375; C9113; J2270; J2405; Q9967

== ENCOUNTER 2023-07-17 09:34 | Emergency (ER) | payer MEDICAID | END 2023-07-17 10:52 | disposition home or self-care (01) | LOC: ERS 09:34 | DX: R19.7 Diarrhea, unspecified (principal); M54.12 Radiculopathy, cervical region; R05.9 Cough, unspecified; E11.9 Type 2 diabetes mellitus without complications; I10 Essential (primary) hypertension; E78.5 Hyperlipidemia, unspecified; F17.210 Nicotine dependence, cigarettes, uncomplicated; Z79.899 Other long term (current) drug therapy; Z79.4 Long term (current) use of insulin; Z79.84 Long term (current) use of oral hypoglycemic drugs; Z79.01 Long term (current) use of anticoagulants | CPT/HCPCS: 99283 ==

== ENCOUNTER 2023-09-03 09:31 | Emergency (ER) | payer SELFPAY ==
[2023-09-03 11:09] LABS: Bilirubin Negative (Negative); Blood, Urine Negative (Negative); Glucose, Urine (Dipstick) Negative (Negative); Ketone, Urine Negative (Negative); Leukocyte Negative (Negative); Nitrite Negative (Negative); Protein, Urine (Dipstick) Negative (Neg-Trace); Urobilinogen 0.2 mg/dL (Less than 2); pH, Urine 6.5 (5.0-9.0)
[2023-09-03 11:10] LABS: Clarity Clear (Clear); Pregnancy Test - Urine (BHCG) Negative (Negative); Pregu Control Background? CLEAR/WHITE (CLR/WHITE); Pregu Control Bar Appear? YES (CONTROL BAR)
[2023-09-03 11:13] LABS: CAUTI Indications for Culture Pelvic or flank pain; RBC/HPF None Seen HPF (0-3); WBC/HPF None Seen HPF (0-3)
[2023-09-03 11:14] LABS: Bacteria/HPF Rare-Few HPF (None Seen)
[2023-09-03 11:15] LABS: Urine Culture Reflex No No
[2023-09-03 17:41] LABS: Chlamydia by PCR, Vaginal Swab Not Detected (NotDetected); GC by PCR, Vaginal Swab Not Detected (NotDetected)
== END 2023-09-03 12:15 | disposition home or self-care (01) ==
LOC: ERS 09:31
DX: N76.0 Acute vaginitis (principal); I10 Essential (primary) hypertension; E10.9 Type 1 diabetes mellitus without complications; E78.5 Hyperlipidemia, unspecified; F17.210 Nicotine dependence, cigarettes, uncomplicated
CPT/HCPCS: 81001; 81025; 87480; 87491; 87510; 87591; 87660; 99283